=== PATIENT | male | born 1945 | race Native Hawaiian/Other Pacific Islander ===

== ENCOUNTER 2017-02-09 05:43 | Day surgery (SDC) | payer MEDICARE ==
[2017-01-31 10:12] VITALS: BMI 22.8
[2017-02-09] MEDS ORDERED: Tropicamide 1% Opht SOLUTION OD SCH (06:00)
[2017-02-09] MEDS ORDERED: Phenylephrine 2.5% Opht Soln OD SCH (06:00)
[2017-02-09] MEDS ORDERED: Lactated Ringer's 500 ML IV ONE ×2 (06:00→07:45)
[2017-02-09 06:23] VITALS: O2SAT 100
[2017-02-09 06:56] LABS: BLOOD UREA NITROGEN 23 mg/dL (9-20); CALCIUM 9.6 mg/dl (8.6-10.4); CARBON DIOXIDE 22 mmol/L (22-30); CHLORIDE 105 mmol/L (98-107); GFR AFRICAN-AMERICAN > 60; GLUCOSE,RANDOM 131 mg/dL (75-110); POTASSIUM 5.6 mmol/L (3.6-5.2); SODIUM 140 mmol/L (132-148)
[2017-02-09] MEDS: Tetracaine 0.5% Ophth (OR ONLY) ONE ×2 (07:38→07:45)
[2017-02-09] MEDS: Lidocaine 2% Inj (20ml) ONE ×2 (07:39→07:50)
[2017-02-09] MEDS: Hyaluronidase Human, Recombi 150 U/ML VIAL ONE ×2 (07:39→07:50)
[2017-02-09] MEDS: Carbachol 0.01% IO ONE ×2 (07:40→08:06)
[2017-02-09] MEDS: Povidone Iodine Ophthalmic 5% Soln ONE ×2 (07:40→07:56)
[2017-02-09] MEDS: Tobramycin/Dexamethasone OPHT OINT ONE ×2 (07:41→08:06)
[2017-02-09] MEDS: Chondroitin/Hyaluronate Opth Syringe KIT (0.55 ml-0.5 ml) IO ONE ×2 (07:41→08:06)
[2017-02-09] MEDS ORDERED: Midazolam 2 MG/2 ML VIAL ONE (07:53)
[2017-02-09] MEDS ORDERED: Propofol 10 mg/ml Inj (20 ML) ONE (07:53)
[2017-02-09 08:47] VITALS: RESP 20
[2017-02-09 10:30] VITALS: BP 178/84; PULSE 75; TEMP 97.2
--- NOTE | 2017-02-09 14:55 | OP ---
PROCEDURE DATE: 02/09/2017 PREOPERATIVE DIAGNOSIS: Nuclear mature cataract, right eye. POSTOPERATIVE DIAGNOSIS: Nuclear mature cataract, right eye. OPERATIVE PROCEDURE: Cataract extraction with lens implant, right eye. SURGEON: Anastacio Palacios MD TYPE OF ANESTHESIA: Retrobulbar block. ESTIMATED BLOOD LOSS: 0 mL. COMPLICATIONS: None. DESCRIPTION OF PROCEDURE: The patient was brought to the operating room and properly identified. Anesthesia staff administered intravenous sedation and retrobulbar block was given to the surgical eye. The patient was then prepped and draped in the usual sterile fashion. Attention was turned to the surgical eye. A lid speculum was placed into interpalpebral fissure. Sitting temporally, two paracentesis incisions were made. The anterior chamber was filled with viscoelastic and a triplanar clear corneal incision was made. Using a cystitome, anterior capsular leaflet was created. Utrata forceps were used to create a continuous curvilinear capsulorrhexis. Balanced salt solution on a cannula was used to hydrodissect and hydrodelineate the lens. The lens was then phacoemulsified with no complications. Automated irrigation and aspiration was used to remove the cortex. Viscoelastic was used to deepen the anterior chamber. The lens was placed in the capsular bag. Automated irrigation and aspiration was used to remove the viscoelastic. The anterior chamber was filled with Miochol. The wounds were hydrated with balanced salt solution. There was noted to be no leak at the end of the case and the lens was well positioned. The lid speculum was removed. The eye was given antibiotics and steroids and covered with a patch and shield. The patient was returned to the recovery room in stable condition. Anastacio Palacios MD
== END 2017-02-09 09:38 | disposition home or self-care (01) ==
LOC: C.SDS 05:43
PROVIDERS: ATTEND Ophthalmology
DX: H25.11 Age-related nuclear cataract, right eye (principal)
CPT/HCPCS: 36415; 66984; 80048; 82948; J2250; J2704; J3010; J3470; J7120

== ENCOUNTER 2017-03-23 06:29 | Day surgery (SDC) | payer MEDICARE ==
[2017-01-31 10:11] VITALS: BMI 22.8
[~2017-03-23 06:29] MED LIST: Lactated Ringer's 500 ML IV ONE; Phenylephrine 2.5% Opht Soln OS SCH; Tropicamide 1% Opht SOLUTION OS SCH
[2017-03-23] MEDS ORDERED: Carbachol 0.01% IO ONE (07:32)
[2017-03-23] MEDS ORDERED: Povidone Iodine Ophthalmic 5% Soln ONE (07:32)
[2017-03-23] MEDS ORDERED: Tobramycin/Dexamethasone OPHT OINT ONE (07:33)
[2017-03-23] MEDS ORDERED: Hyaluronidase Human, Recombi 150 U/ML VIAL ONE (07:33)
[2017-03-23] MEDS ORDERED: Chondroitin/Hyaluronate Opth Syringe KIT (0.55 ml-0.5 ml) IO ONE (07:33)
[2017-03-23] MEDS ORDERED: Tetracaine 0.5% Ophth (OR ONLY) ONE (07:33)
[2017-03-23] MEDS ORDERED: Lidocaine 2% Inj (20ml) ONE (07:33)
[2017-03-23] MEDS ORDERED: Lactated Ringer's 500 ML IV ONE (07:39)
[2017-03-23] MEDS ORDERED: Propofol 10 mg/ml Inj (20 ML) ONE (08:41)
[2017-03-23] MEDS ORDERED: Midazolam 2 MG/2 ML VIAL ONE (08:41)
[2017-03-23 10:32] VITALS: BP 165/89; PULSE 73; RESP 20; TEMP 98; O2SAT 100
--- NOTE | 2017-03-23 18:39 | OP ---
PROCEDURE DATE: 03/23/2017 PREOPERATIVE DIAGNOSIS: Hypermature cataract, left eye. POSTOPERATIVE DIAGNOSIS: Hypermature cataract, left eye. OPERATIVE PROCEDURE: Complex cataract surgery, left eye using VisionBlue for hypermaturity. ATTENDING SURGEON: Dr. Anastacio Palacios. ANESTHESIA: Retrobulbar block. COMPLICATIONS: None. ESTIMATED BLOOD LOSS: 0 mL. PROCEDURE: The patient was brought to the operating room and properly identified. Anesthesia staff administered intravenous sedation and retrobulbar block was given to the surgical eye. The patient was then prepped and draped in the usual sterile fashion. Attention was turned to the surgical eye. A lid speculum was placed into interpalpebral fissure. Sitting temporally, two paracentesis incisions were made. The anterior chamber was filled with viscoelastic and a triplanar clear corneal incision was made. Using a cystitome, anterior capsular leaflet was created. Utrata forceps were used to create a continuous curvilinear capsulorrhexis. Balanced salt solution on a cannula was used to hydrodissect and hydrodelineate the lens. The lens was then phacoemulsified with no complications. Automated irrigation and aspiration was used to remove the cortex. Viscoelastic was used to deepen the anterior chamber. The lens was placed in the capsular bag. Automated irrigation and aspiration was used to remove the viscoelastic. The anterior chamber was filled with Miochol. The wounds were hydrated with balanced salt solution. There was noted to be no leak at the end of the case and the lens was well positioned. The lid speculum was removed. The eye was given antibiotics and steroids and covered with a patch and shield. The patient was returned to the recovery room in stable condition. ADDENDUM: VisionBlue was used to highlight the anterior capsule. Then a careful continuous curvilinear rrhexis was then created with no complications. Anastacio Palacios MD
== END 2017-03-23 10:41 | disposition home or self-care (01) ==
LOC: C.SDS 06:29
PROVIDERS: ATTEND Ophthalmology
DX: H25.12 Age-related nuclear cataract, left eye (principal); H25.22 Age-related cataract, morgagnian type, left eye; E11.9 Type 2 diabetes mellitus without complications; I10 Essential (primary) hypertension; Z88.0 Allergy status to penicillin; Z79.84 Long term (current) use of oral hypoglycemic drugs; Z79.4 Long term (current) use of insulin
CPT/HCPCS: 66982; 82948; J2250; J2704; J3470; J7120; V2632